=== PATIENT | female | born 1990 | race Caucasian/White ===

== ENCOUNTER 2016-05-17 20:21 | Emergency (ER) | payer OTHER ==
[2016-05-17] MEDS ORDERED: fentaNYL 100 MCG/2 ML INJ IVP ONE (20:59)
[2016-05-17] MEDS ORDERED: NS 1,000 ML IV ONE (21:00)
[2016-05-17 21:13] LABS: % IMMATURE GRANULYOCYTES 0.4 % (0.0-1.1); ABSOLUTE IMMATURE GRANULOCYTES 0.05 10^3/uL (0.00-0.10); ADD DIFF? NO; ADD MORPH? NO; ADD SCAN? NO; ATYPICAL LYMPHOCYTE FLAG 0 (0-99); FRAGMENT RBC FLAG 0 (0-99); HEMATOCRIT 43.7 % (38.0-47.0); HEMOGLOBIN 14.6 g/dL (12.6-16.3); LEFT SHIFT FLG 0 (0-99); LIPEMIA HEMOLYSIS FLAG 80 (0-99); MEAN CELL HEMOGLOBIN CONCENTR. 33.4 g/dL (32.4-36.7); MEAN CELL VOLUME 86.7 fL (81.5-99.8); PLATELET CLUMPS FLAG 0 (0-99); PLATELET COUNT 368 10^3/uL (150-400); RED BLOOD CELL COUNT 5.04 10^6/uL (4.18-5.33); RED CELL DISTRIBUTION WIDTH 13.2 % (11.5-15.2)
[2016-05-17 21:22] LABS: ALANINE AMINOTRANSFERASE 33 IU/L (9-52); ALBUMIN 4.3 g/dL (3.5-5.0); ALKALINE PHOSPHATASE 62 IU/L (38-126); ANION GAP 16 mEq/L (8-16); ASPARTATE AMINOTRANSFERASE 24 IU/L (14-46); BILIRUBIN,TOTAL 1.5 mg/dL (0.1-1.4); BILIRUBIN-CONJUGATED 0.1 mg/dL (0.0-0.5); BILIRUBIN-UNCONJUGATED 1.4 mg/dL (0.0-1.1); CALCIUM 9.2 mg/dL (8.5-10.4); CARBON DIOXIDE 22 mEq/l (22-31); CHLORIDE 102 mEq/L (97-110); CREATININE 0.6 mg/dL (0.6-1.0); GLOMERULAR FILTRATION RATE > 60; GLUCOSE 102 mg/dL (70-100); POTASSIUM 3.6 mEq/L (3.5-5.2); SODIUM 140 mEq/L (134-144); TOTAL PROTEIN 7.7 g/dL (6.3-8.2)
[2016-05-17 21:30] LABS: COLOR YELLOW; LEUKOCYTE ESTERASE,URINE 2+ (NEGATIVE); NITRITE,URINE NEGATIVE (NEGATIVE)
[2016-05-17] MEDS ORDERED: MAALOX/LIDO/HYOSC GI COCKTAIL 55 ML BOTTLE PO ONE (21:38)
--- NOTE | 2016-05-17 21:38 | EDPHY ---
H & P Stated Complaint: abd pain Time Seen by Provider: 05/17/16 21:13 HPI/ROS: CHIEF COMPLAINT: Epigastric and right upper quadrant abdominal pain HISTORY OF PRESENT ILLNESS: 26-year-old female with history of irritable bowel disease, dietary controlled, complaining of epigastric and right upper quadrant abdominal pain with nausea, no vomiting, positive diarrhea which is nonbloody, since last evening. No radiation of pain. No history of chronic NSAID use. No chronic alcohol use. No back or flank pain. No urinary complaints. No trauma. No rash. REVIEW OF SYSTEMS: A ten point review of systems was performed and is negative with the exception of the items mentioned in the HPI PAST MEDICAL & SURGICAL HISTORY: No history of chronic abdominal pathology SOCIAL HISTORY: nonsmoker PHYSICAL EXAM (Prior to examination, patient consented to physical exam, hands were washed and my usual and customary physical exam procedures followed) 1) GENERAL: Well-developed, well-nourished, alert and oriented. Appears to be in no acute distress. 2) HEAD: Normocephalic, atraumatic 3) HEENT: Pupils equal, round, reactive to light bilaterally. Sclera anicteric. Nasopharynx, oropharynx, clear, no lesions. 4) NECK: Full range of motion, no meningeal signs. 5) LUNGS: Clear auscultation bilaterally, no wheezes, no rhonchi, no retractions. 6) HEART: Regular rate and rhythm, no murmur, no heave, no gallop. 7) ABDOMEN: No guarding, tender to palpation epigastrium, positive Schaffer's, negative McBurney's,,negative Rovsing's, negative peritoneal sign, 8) MUSCULOSKELETAL: Moving all extremities, no focal areas of tenderness, no obvious trauma. No peripheral edema or discoloration. 9) BACK: No CVA tenderness, , 10) SKIN: No rash, no petechiae. 11) Psychiatric: Patient is oriented X 3, there is no agitation. DIFFERENTIAL DIAGNOSIS: In no particular order, including but not limited to biliary colic, cholecystitis, peptic ulcer disease, pancreatitis, and gastroenteritis. This is a partial list of diagnoses considered. These considerations are based on history, physical exam, past history and reassessment. - Personal History LMP (Females 10-55): Extended Cycle BCP/Inj Current Tetanus/Diphtheria Vaccine: Yes Current Tetanus Diphtheria and Acellular Pertussis (TDAP): Yes - Medical/Surgical History Hx Asthma: No Hx Chronic Respiratory Disease: No Hx Diabetes: No Hx Cardiac Disease: No Hx Renal Disease: No Hx Cirrhosis: No Hx Alcoholism: No Hx HIV/AIDS: No Hx Splenectomy or Spleen Trauma: No Other PMH: IBS, chronic fatigue, tonsilectomy - Social History Smoking Status: Never smoked Constitutional: Initial Vital Signs Temperature (C) 37 C 05/17/16 20:32 Heart Rate 97 05/17/16 20:32 Respiratory Rate 18 05/17/16 20:32 Blood Pressure 100/64 05/17/16 20:32 O2 Sat (%) 99 05/17/16 20:32 O2 Delivery Mode Room Air Allergies/Adverse Reactions: bacitracin [From Neosporin ([id number])] Allergy (Verified 05/17/16 20:31) bacitracin zinc [From Neosporin ([id number])] Allergy (Verified 05/17/16 20: 31) neomycin sulfate [From Neosporin ([id number])] Allergy (Verified 05/17/16 20: 31) polymyxin B [From Neosporin ([id number]-[id number])] Allergy (Verified 05/17/16 20:31) Home Medications: Medication Instructions Recorded [place] 28 Day Tablet 05/17/16 Cephalexin [Keflex] 500 mg PO BID 7 Days 05/17/16 Citalopram 05/17/16 Hydrocodone/APAP 5/325 [[place] 1 tab PO Q6 PRN #7 tab 05/17/16 5/325 (RX)] Levothyroxine 05/17/16 Pantoprazole Sodium [Protonix 40mg 40 mg PO DAILY #30 tab 05/17/16 (RX)] Promethazine HCl [Phenergan] 25 mg PO Q6 #7 tab 05/17/16 Testosterone 05/17/16 Medical Decision Making - Diagnostics Imagin:15 p.m.: Ultrasound Abdomen Limited HISTORY: Right upper quadrant pain. COMPARISON: January 2013. FINDINGS: The liver is homogeneous, measuring 16.1 cm. No focal liver lesion. No evidence for intrahepatic or extrahepatic biliary ductal dilatation. The gallbladder is normal in appearance, without evidence for cholelithiasis or cholecystitis. The abdominal aorta is normal in diameter. The common bile duct measures 4 mm. The right kidney measures 11.3 cm in length and demonstrates no evidence for a mass or hydronephrosis. No significant free fluid in the upper abdomen. IMPRESSION: Normal right upper quadrant ultrasound. Results discussed with Kameron Irving PA-C. Dictated By: Karl Cruz MD Images reviewed by myself ED Course/Re-evaluation: 11:00 p.m.: Re-evaluation. Discussed her diagnostic results. Reexamined and she has no McBurneys point pain. She is feeling improvement after GI cocktail. Doubt acute cholecystitis. Doubt acute surgical abdominal pathology. No lower abdominal pain. Doubt pulmonary embolus. Plan will be discharge, follow up with PCP and Gastroenterology, started on proton pump inhibitor, anti emetic. She is also noted to have bacteriuria. Urine cultured. IV ceftriaxone ordered however patient declined preferring to speak with her primary care provider tomorrow regarding antibiotics. Doubt urosepsis. Discussed case Dr. Cruz Nunn - Data Points Laboratory Results: Laboratory Results 05/17/16 21:00 05/17/16 21:00 05/17/16 21:00 WBC 11.21 H 10^3/uL (3.80-9.50) RBC 5.04 10^6/uL (4.18-5.33) Hgb 14.6 g/dL (12.6-16.3) Hct 43.7 % (38.0-47.0) MCV 86.7 fL (81.5-99.8) MCH 29.0 pg (27.9-34.1) MCHC 33.4 g/dL (32.4-36.7) RDW 13.2 % (11.5-15.2) Plt Count 368 10^3/uL (150-400) MPV 10.0 fL (8.7-11.7) Neut % (Auto) 86.7 H % (39.3-74.2) Lymph % (Auto) 8.9 L % (15.0-45.0) [place] % (Auto) 3.2 L % (4.5-13.0) Eos % (Auto) 0.4 L % (0.6-7.6) Baso % (Auto) 0.4 % (0.3-1.7) Nucleat RBC Rel Count 0.0 % (0.0-0.2) Absolute Neuts (auto) 9.71 H 10^3/uL (1.70-6.50) Absolute Lymphs (auto) 1.00 10^3/uL (1.00-3.00) Absolute Monos (auto) 0.36 10^3/uL (0.30-0.80) Absolute Eos (auto) 0.04 10^3/uL (0.03-0.40) Absolute Basos (auto) 0.05 10^3/uL (0.02-0.10) Absolute Nucleated RBC 0.00 10^3/uL (0-0.01) Immature Gran % 0.4 % (0.0-1.1) Immature Gran # 0.05 10^3/uL (0.00-0.10) Sodium 140 mEq/L (134-144) Potassium 3.6 mEq/L (3.5-5.2) Chloride 102 mEq/L (97-110) Carbon Dioxide 22 mEq/l (22-31) Anion Gap 16 mEq/L (8-16) BUN 8 mg/dL (7-23) Creatinine 0.6 mg/dL (0.6-1.0) Estimated GFR > 60 Glucose 102 H mg/dL (70-100) Calcium 9.2 mg/dL (8.5-10.4) Total Bilirubin 1.5 H mg/dL (0.1-1.4) Conjugated Bilirubin 0.1 mg/dL (0.0-0.5) Unconjugated Bilirubin 1.4 H mg/dL (0.0-1.1) AST 24 IU/L (14-46) ALT 33 IU/L (9-52) Alkaline Phosphatase 62 IU/L (38-126) Total Protein 7.7 g/dL (6.3-8.2) Albumin 4.3 g/dL (3.5-5.0) Lipase 110.0 IU/L (23-300) Beta HCG, Qual NEGATIVE Urine Color YELLOW Urine Appearance HAZY Urine pH 7.0 (5.0-7.5) Ur Specific [place] 1.024 (1.002-1.030) Urine Protein 1+ H (NEGATIVE) Urine Ketones 2+ H (NEGATIVE) Urine Blood 3+ H (NEGATIVE) Urine Nitrate NEGATIVE (NEGATIVE) Urine Bilirubin NEGATIVE (NEGATIVE) Urine Urobilinogen NEGATIVE EU (0.2-1.0) Ur Leukocyte Esterase 2+ H (NEGATIVE) Urine RBC 10-15 H /hpf (0-3) Urine WBC 5-10 H /hpf (0-3) Ur Epithelial Cells 1+ /lpf (NONE-1+) Urine Bacteria 1+ H /hpf (NONE SEEN) Urine Mucus TRACE /lpf (NONE-1+) Urine Glucose NEGATIVE (NEGATIVE) Medications Given: Discontinued Medications Acetaminophen/Hydrocodone Bitart ([place] 5/325mg Prepack#6) 1 btl TAKEHOME EDNOW ONE Stop: 05/17/16 23:25 Last Admin: 05/17/16 23:36 Dose: 1 btl Fentanyl (Sublimaze) 50 mcg IVP EDNOW ONE Stop: 05/17/16 21:00 Last Admin: 05/17/16 21:12 Dose: 50 mcg Sodium Chloride (Ns) 1,000 mls @ 0 mls/hr IV ONCE ONE PRN Reason: Wide Open Stop: 05/17/16 21:01 Last Admin: 05/17/16 21:12 Dose: 1,000 mls Ceftriaxone Sodium/Dextrose (Rocephin 1 Gm (Premix)) 50 mls @ 100 mls/hr IV EDNOW ONE PRN Reason: Protocol Stop: 05/17/16 22:25 Last Admin: 05/17/16 23:12 Dose: Not Given Miscellaneous Medication (Gi Cocktail) 45 ml PO EDNOW ONE Stop: 05/17/16 21:39 Last Admin: 05/17/16 22:23 Dose: 45 ml Ondansetron HCl (Zofran) 4 mg IVP EDNOW ONE Stop: 05/17/16 22:16 Last Admin: 05/17/16 22:22 Dose: 4 mg Promethazine HCl (Phenergan 25 Mg Prepack #4) 1 btl TAKEHOME EDNOW ONE Stop: 05/17/16 23:25 Last Admin: 05/17/16 23:36 Dose: 1 btl Departure - Departure Disposition: Home, Routine, Self-Care Clinical Impression: Epigastric abdominal pain, Cystitis Condition: Good Instructions: Abdominal Pain (ED), Urinary Tract Infection in Women (ED) Additional Instructions: Seek immediate medical attention if you develop new or worsening symptoms, if you develop fevers, chills, inability to tolerate oral intake or any other symptoms that concerns you. If you are not better in 24 hours, return to the ER for revaluation. Referrals: Karmen Ray NP [Primary Care Provider] - 1 day without fail Sejal Cash MD [Medical Doctor] - 2-3 days, call for appt. Prescriptions: Cephalexin [Keflex] 500 mg PO BID 7 Days Hydrocodone/APAP 5/325 [[place] 5/325 (RX)] 1 tab PO Q6 PRN #7 tab PRN Reason: Pain, Severe Promethazine HCl [Phenergan] 25 mg PO Q6 #7 tab Pantoprazole Sodium [Protonix 40mg (RX)] 40 mg PO DAILY #30 tab
[2016-05-17 21:41] LABS: BACTERIA 1+ /hpf (NONE SEEN); MUCUS TRACE /lpf (NONE-1+)
[2016-05-17] MEDS ORDERED: ONDANSETRON 4 MG/2 ML VIAL IVP ONE (22:15)
--- NOTE | 2016-05-17 22:27 | US ---
Ultrasound Abdomen Limited HISTORY: Right upper quadrant pain. COMPARISON: January 2013. FINDINGS: The liver is homogeneous, measuring 16.1 cm. No focal liver lesion. No evidence for intr ahepatic or extrahepatic biliary ductal dilatation. The gallbladder is normal in appearance, without evidence for cholelithiasis or cholecystitis. The abdominal aorta is normal in diameter. The commo n bile duct measures 4 mm. The right kidney measures 11.3 cm in length and demonstrates no evidence for a mass or hydronephrosis. No significant free fluid in the upper abdomen. IMPRESSION: Normal right upper quadrant ultrasound. Results discussed with Kameron Irving PA-C.
[2016-05-17] MEDS ORDERED: HYDROCOD/APAP 5/325 PREPACK#6 BTL TAKEHOME ONE (23:24)
[2016-05-17] MEDS ORDERED: PROMETHAZINE 25 MG PREPACK #4 BTL TAKEHOME ONE (23:24)
[2016-05-17 23:38] VITALS: BP 120/56; PULSE 99; RESP 16; TEMP 99; O2SAT 95
== END 2016-05-17 23:37 | disposition home or self-care (01) ==
DX: N30.90 Cystitis, unspecified without hematuria (principal); B96.89 Other specified bacterial agents as the cause of diseases classified elsewhere
CPT/HCPCS: 96374; J0696; J2405; J3010

== ENCOUNTER 2017-11-06 20:20 | Emergency (ER) | payer OTHER, MEDICAID ==
[2017-11-06 20:25] VITALS: BP 121/78
--- NOTE | 2017-11-06 20:39 | EDPHY ---
H & P Stated Complaint: R Hand Injury Time Seen by Provider: 11/06/17 20:39 HPI/ROS: HPI CHIEF COMPLAINT: Right hand injury. HISTORY OF PRESENT ILLNESS: This is a 27-year-old female, presents emergency room with a right hand injury. Patient states that she was celebrating the [employer] around 10 or 11:00 a.m. this morning the patient hit her hand lateral aspect her right hand on the edge of a table. Since then she has had ongoing pain, swelling numbness and tingling to her 4th and 5th digit. No weakness. Denies any other areas of injury Past Medical History: No other medical history Past Surgical History: No other surgical history Social History: Denies daily use drugs alcohol tobacco. Family History: Noncontributory ROS REVIEW OF SYSTEMS: A comprehensive 10 point review of systems is otherwise negative aside from elements mentioned in the history of present illness. Exam Constitutional triage nursing summary reviewed, vital signs reviewed, awake/ alert. Eyes normal conjunctivae and sclera, EOMI, PERRLA. HENT normal inspection, atraumatic, moist mucus membranes, no epistaxis, neck supple/ no meningismus, no raccoon eyes. Respiratory clear to auscultation bilaterally, normal breath sounds, no respiratory distress, no wheezing. Cardiovascular rate normal, regular rhythm, no murmur, no edema, distal pulses normal. Gastrointestinal soft, non-tender, no rebound, no guarding, normal bowel sounds, no distension, no pulsatile mass. Genitourinary no CVA tenderness. Musculoskeletal right hand: Mild tender palpation over the 5th metatarsal. Otherwise neurovascular intact good distal pulse, good cap refill, no signs of compartment syndrome. No laceration. No evidence soft tissue injury. Complaining of numbness and tingling of the 4th digit. no midline vertebral tenderness, full range of motion, no calf swelling, no tenderness of extremities, no meningismus, good pulses, neurovascularly intact. Skin pink, warm, & dry, no rash, skin atraumatic. Neurologic awake, alert and oriented x 3, AAOx3, moves all 4 extremities equally, motor intact, sensory intact, CN II-XII intact, normal cerebellar, normal vision, normal speech. Psychiatric normal mood/affect. Heme/Lymph/Immune no lymphadenopathy. Differential Diagnosis: Includes but is not limited to in a particular order hand contusion, hand sprain, bony abnormality, fracture, nerve injury Medical Decision Making: Plan for this patient x-ray right hand. She is neurovascularly intact. Most likely has starting of the nerve due to blunt force trauma. This should improve. Rule out fracture with hand x-ray. Re-evaluation: X-ray of the right hand reviewed this shows a fracture of the 5th metacarpal. Nondisplaced. Due to the fracture of the metacarpal this patient be placed in a splint ulnar gutter. Patient will need orthopedic Hand surgery follow-up. At this time I did discuss the results of her x-ray with her. She understands. Splint for comfort. Ibuprofen for pain. Recommend ice, elevation. Recommend Hand surgery follow-up. Return precautions discussed understands return emergency room if there is worsening symptoms questions concerns pain. There is no evidence of compartment syndrome on exam. Source: Patient - Personal History LMP (Females 10-55): 15-21 Days Ago Current Tetanus Diphtheria and Acellular Pertussis (TDAP): Yes - Medical/Surgical History Hx Asthma: No Hx Chronic Respiratory Disease: No Hx Diabetes: No Hx Cardiac Disease: No Hx Renal Disease: No Hx Cirrhosis: No Hx Alcoholism: No Hx HIV/AIDS: No Hx Splenectomy or Spleen Trauma: No Other PMH: IBS, chronic fatigue, tonsilectomy - Social History Smoking Status: Never smoked Constitutional: Initial Vital Signs Temperature (C) 36.8 C 11/06/17 20:24 Heart Rate 63 11/06/17 20:24 Respiratory Rate 18 11/06/17 20:24 Blood Pressure 121/78 H 11/06/17 20:24 O2 Sat (%) 96 11/06/17 20:24 O2 Delivery Mode Room Air Allergies/Adverse Reactions: bacitracin [From Neosporin ([id number])] Allergy (Verified 05/17/16 20:31) bacitracin zinc [From Neosporin ([id number])] Allergy (Verified 05/17/16 20: 31) neomycin sulfate [From Neosporin ([id number]-[id number])] Allergy (Verified 05/17/16 20: 31) polymyxin B [From Neosporin ([id number])] Allergy (Verified 05/17/16 20:31) Home Medications: Medication Instructions Recorded NK [No Known Home Meds] 11/06/17 Medical Decision Making - Diagnostics Imaging Results: Imaging Impressions Hand X-Ray 11/06/17 20:30 Impression: Suspect nondisplaced linear fracture through the mid aspect of the right fifth metacarpal Departure - Departure Disposition: Home, Routine, Self-Care Clinical Impression: Hand contusion, Hand fracture, right Condition: Good Instructions: Contusion in Adults (ED), Hematoma (ED), Hand Fracture (ED) Additional Instructions: 1. Recommend ice. 2. Elevation. 3. Return emergency room if there is worsening pain questions or concerns. Referrals: NONE *PRIMARY CARE P,. [Primary Care Provider] - As per Instructions Jeremias Mcgrath MD [Medical Doctor] - As per Instructions
== END 2017-11-06 22:17 | disposition home or self-care (01) ==
DX: S60.221A Contusion of right hand, initial encounter (principal); W22.03XA Walked into furniture, initial encounter; Y99.8 Other external cause status; Y93.89 Activity, other specified